=== PATIENT | male | born 1955 | race Caucasian/White ===

== ENCOUNTER → 2018-02-16 | Day surgery (SDC) | payer OTHER ==
--- NOTE | 2018-02-15 21:00 | MH ---
cc: Dmitry Schaefer MD DATE OF ADMISSION: 02/16/2018 DATE OF SURGERY: 02/16/2018 DIAGNOSES: 1. Full-thickness rotator cuff tear supraspinatus. 2. Osteoarthritis acromioclavicular joint. 3. Biceps tenosynovitis. HISTORY OF PRESENT ILLNESS: He has a problem with the shoulder for several months. He was seen in urgent care centers and given medications. He had no injury. 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 He has had some chronic neck problems, but no radiculopathy. He saw me for the first time 12/06/2017 at which time he was evaluated and x-rayed. It was felt that he probably had a full-thickness rotator cuff tear. Because of his age and the type of work he does it was important to know whether it should be repaired. Therefore, he was sent for an MRI scan and MRI scan came back to show that he had full-thickness tear of the supraspinatus with some retraction but no atrophy. Alternatives discussed with the patient and he has agreed to arthroscopic surgery of the right shoulder with rotator cuff repair, as well as coplaning or excision of the lateral end of the clavicle, acromioplasty and biceps tenotomy with or without tenodesis. The diagnosis, the treatment, the prognosis and the potential risks, hazards, complications and expected results postoperative course, postoperative immobilization in UltraSling for 6 weeks, nerve pain management with nerve block, possibility of nerve injury, and infection, nonhealing have been discussed. I particularly talked to him about the adverse effects of smoking. He smoked for over 40 years, his also smokes and he says he is willing to take the risk of it not healing, but he is going to try his best to stop smoking or at least minimize the amount of smoking. Informed consent obtained. No guarantees made. PHYSICAL EXAMINATION: GENERAL: Reveals a 62-year-old white male who is of slight build and average nourishment. He has the appearance of a chronic smoker. HEENT: Head normocephalic. Pupils reactive to light. Face symmetrical. HEART: Regular rate and rhythm. LUNGS: Clear to auscultation. No rales or rhonchi. ABDOMEN: Soft and supple. EXTREMITIES: Right shoulder has flexion of 120 degrees, abduction of about 120 degrees, mild restriction in rotation. Impingement test is equivocal. He has some weakness and pain to external rotation of the right shoulder against resistance. No neurovascular deficits in the right hand. MD LAURA Tripathi/rt , 08:26 PM , 08:59 PM
[~2018-02-16] VITALS: Ht 177.8 cm; Wt 74.8 kg
[~2018-02-16] MED LIST: *RESP: ALBUTEROL 2.5 MG/3 ML NEB (PRN) PERIprocedural Use ONLY NEB ONE; ACET325C PO; ACETAMINOPHEN 1000 MG/100 ML 100 ML IV ONE; ACETAMINOPHEN/HYDROcodone 325 MG/5 MG TAB PO PRN; AMLO5TAB2 PO; ASPI1TAB93 PO; ATOR40TA16 PO; ATORVASTATIN 40 MG TAB PO SCH; BUPIVACAINE HCL PF 0.5% 30 ML VIAL ONE; CEFAZOLIN INJ 2,000 MG in SODIUM CHLORIDE 0.9% INJ 100 ML IV SCH; CHLO25CA9 PO; CHLORHEXIDINE GLUCONATE 2 % 1 PACK (2 CLOTHS) TOPICAL PRN; DEXAMETHASONE SOD PHOS 4 MG/ML VIAL IV ONE; DEXAMETHASONE SOD PHOS PF 10 MG/ML VIAL ONE; DO NOT ADM ANY ANTICOAGULANT DRUGS PRN; EPINEPHrine HCL (1:1000) 1 MG/ML VIAL ONE; FOLI1TAB6 P-ARTICULR; GLYCOPYRROLATE 1 MG/5 ML SYRINGE IV PUSH ONE; HYDR-3583 PO; LACTATED RINGER'S 1000 ML INJ 1,000 ML IV ONE; LACTATED RINGER'S 1000 ML IV PRN; LIDOCAINE HCL 1% PF 5 ML SYRINGE OTHER ONE; METO25TA3 PO; METO50TA PO; METOPROLOL TARTRATE 25 MG TAB PO PRN; METOPROLOL TARTRATE 50 MG TAB PO SCH; MIDAZOLAM HCL 5 MG/5 ML VIAL ONE; MORPHINE SULFATE 4 MG/ML INJ IV PUSH PRN; NEOSTIGMINE 5 MG/5 ML SYRINGE IV PUSH ONE; NON-FORMULARY DRUG (Omeprazole 20 MG) PO SCH; NON-FORMULARY DRUG (Potassium Gluconate (Potassium) 1 TAB) PO SCH; NORV2.5T PO; OMEP20TA93 PO; ONDANSETRON HCL 4 MG/2 ML VIAL IV ONE; ONDANSETRON HCL 4 MG/2 ML VIAL IV PUSH PRN; PANTOPRAZOLE SOD 20 MG DELAYED RELEASE TAB PO SCH; PHENYLEPH/NS 1000 MCG/10 ML SYR IV ONE; PHENYLEPHRINE HCL 10 MG/ML VIAL IV ONE; POTA-255 PO; POVIDONE IODINE 5% (ANTISEPSIS KIT) 4 APPLICATIONS EACH NARE PRN; POVIDONE IODINE 7.5% SCRUB 118 ML BOTTLE TOPICAL SCH; PRIL20TA2 PO; PROPOFOL 200 MG/20 ML AMP IV ONE; ROCURONIUM INJ 50 MG/5 ML SYRINGE IV PUSH ONE; SODIUM CHLOR 0.9% 1000 ML INJ 1,000 ML IV SCH; SODIUM CHLORID 0.9% 500 ML IV PRN; VANCOMYCIN 1250 MG/NS 250 ML (for 70-84 kg) IV SCH; VITA100T54 PO; ZOFR4TAB PO; [UNRECOGNIZED DRUG - OTHER] PO SCH; amLODIPine BESYLATE 5 MG TAB PO SCH
--- NOTE | 2018-02-16 11:48 | MP ---
cc: Dmitry Schaefer MD DATE OF OPERATION: 02/16/2018 DATE OF : 1955 DATE OF SURGERY: 02/16/2018 PREOPERATIVE DIAGNOSIS: 1. Rotator cuff tear, right shoulder repair. 2. Osteoarthritis with bone spurs subacromially of the acromioclavicular joint. 3. Probable biceps tendinopathy. POSTOPERATIVE DIAGNOSIS: 1. Rotator cuff tear, right shoulder repair. 2. Osteoarthritis with bone spurs subacromially of the acromioclavicular joint. 3. The biceps tendon was in its groove and there was no evidence of any tendinopathy. OPERATIVE PROCEDURE: 1. Arthroscopic rotator cuff repair, right shoulder. 2. Subacromial decompression as well as modified Abiel procedure (coplaning lateral end clavicle). SURGEON: Dr. Schaefer ANESTHESIA: General. TECHNIQUE: After induction of general anesthesia, the patient was placed in right lateral position, supported with Biomet hip positioners. The patient was tilted towards the surgeon. Axillary roll was placed, the legs properly positioned and secured. Right arm placed in traction at about 35 degrees of abduction using Arthrex soft goods with the Acufex positioner. Right shoulder girdle was thoroughly prepped with alcohol and ChloraPrep and draped in routine fashion. Bony prominences were marked. The joint was entered through the posterior soft spot. Insufflation of the joint was carried out. Immediately apparent was a tear of the supraspinatus from bone. There was good substance of the tendon. There was some attrition of the deep layer of the subscapularis, but the biceps tendon is very well in its groove. Anterior portal established and traction placed on the biceps tendon to visualize the intertubercular portion of that tendon and it looks literally pristine for his age and therefore biceps tenotomy was not carried out. The surgery was then transferred to the subacromial space, where bursectomy and acromioplasty were carried out. There were large spurs off of the lateral end of the clavicle and acromion which were planed with a large bur. The rotator cuff tear was visualized using a shaver and ArthroCare system. Bursectomy and delineation of the area was carried out. The bone was denuded of soft tissue. Traction was placed on the rotator cuff and seems to be flexible. Two SpeedBridge anchors were placed, one anterior and one posterior lateral to the articular surface. These were then passed through the rotator cuff. The two limbs were then cut and one suture from each limb crossed over and an [id number] repair done with a SwiveLock anchors. The repair looks good. Subacromial space again visualized and there was still significant spurring of the lateral end of the clavicle, which was coplaned at this time. The area was thoroughly lavaged and suctioned out, instrumentation withdrawn, the portals closed with interrupted 3-0 nylon sutures. Dressings applied with Xeroform, 4 x 4's, ABD and Micropore tape, followed by application of DonJoy UltraSling. Patient transferred to the recovery room in satisfactory condition. The patient tolerated the procedure well. TRANSFUSIONS AND COMPLICATIONS: None. POSTOPERATIVE CONDITION: Satisfactory. PROGNOSIS: Guarded to good. MD LAURA Tripathi/[place] , 11:23 AM , 11:47 AM
--- NOTE | 2018-02-16 13:08 | EKG ---
Date Performed: 02/16/2018 Time Performed: 07:12:14 PTAGE: 62 years EKG: Sinus rhythm MINIMAL VOLTAGE CRITERIA FOR LVH, CONSIDER NORMAL VARIANT BORDERLINE ECG PREVIOUS TRACING : 06/06/2014 11.18 DOCTOR: Mina Cardona Interpretating Date/Time 02/16/2018 13:04:42
[2018-02-16 13:10] VITALS: BP 117/73; PULSE 93; RESP 18; TEMP 98.5; O2SAT 94
== END | disposition home or self-care (01) ==
LOC: HSDC 05:44
PROVIDERS: ATTEND Orthopaedic Surgery
DX: M75.121 Complete rotator cuff tear or rupture of right shoulder, not specified as traumatic (principal); M75.41 Impingement syndrome of right shoulder; M19.011 Primary osteoarthritis, right shoulder; M77.9 Enthesopathy, unspecified; I10 Essential (primary) hypertension; F17.200 Nicotine dependence, unspecified, uncomplicated; Z01.810 Encounter for preprocedural cardiovascular examination
CPT/HCPCS: 01630; 29824; 29826; 29827; 64415; 93005; 94664; C1713; J0131; J0171; J0690; J1100; J2250; J2370; J2405; J2710; J3010; J3370; J7050; J7120; J7613